=== PATIENT | female | born 1980 | race Caucasian/White ===

== ENCOUNTER 2016-11-08 06:25 | Inpatient (IN) | payer OTHER ==
--- NOTE | 2016-10-21 14:00 | GHP ---
[f rep st] PREOP HISTORY AND PHYSICAL Amended report DATE OF PLANNED PROCEDURE: 11/08/2016. PLANNED PROCEDURE: Repeat low transverse section. ADMISSION DIAGNOSIS: Intrauterine at 39 weeks gestation. History of previous section x2. Scheduled for repeat. INDICATIONS: Patient is a 36-year-old 3, para 2, who will be 39 weeks gestation. She has a history of a previous low transverse section x2 and plan to repeat low transverse section. The patient had initially planned on having a tubal ligation, but her has had a vasectomy so she will not have a tubal ligation. Risks and benefits of the procedure have been extensively reviewed with the patient, and the patient has been properly consented. MEDICAL HISTORY: Hypothyroidism, a history of Juliet diagnosed in 2010, rectus diastasis versus umbilical hernia. MEDICATIONS: vitamins, levothyroxine 25 mcg. SURGICAL HISTORY: section x2, wisdom tooth extraction. ALLERGIES: No known drug allergies. SOCIAL HISTORY: Patient is . She is a xvwq-ir-pema mom. She lives with her and her 2 children. She denies tobacco, alcohol, or drug use. FAMILY MEDICAL HISTORY: Noncontributory. PRENATAL NURSE HISTORY: Menarche age 15, periods every 24 days lasting 4-5 days. She is a 3, para 2-0-0-2. In 2011, she had a primary low transverse section at 41 weeks gestation for intolerance of labor. Baby was an 8 pound 13 ounce male . In 2013, she had a repeat low transverse section at 39 weeks gestation. Baby was 8 pounds, 3 ounces and a male infant. Current has been uncomplicated. Patient denies any history of any abnormal Pap smears or sexually transmitted diseases. PHYSICAL EXAM: VITAL SIGNS: Stable. GENERAL APPEARANCE: Alert and oriented x3. HEART: Rate is regularly regular. LUNGS: Clear to auscultation bilaterally. ABDOMEN: Gravid, nondistended, nontender. EXTREMITIES: Reveal no calf tenderness or edema. PELVIC: Exam was deferred. Patient's heart tracings have been appropriate. heart tones in an in a vertex presentation. Patient's labs, blood type O positive , antibody screen negative. Rubella immune. GBS positive. HBsAg negative. HIV negative. Her 50-g glucose was 85. ASSESSMENT AND PLAN: A 36-year-old 3, para 2, who will be 39 weeks gestation with a history of a previous low transverse section x2. She will have a repeat low transverse section. She does not need to have a tubal ligation, as her has just had a vasectomy. /[id number]/MODL Add acc#, 11/08/16, kaleb ALVAREZ
[2016-11-08] MEDS ORDERED: ceFAZolin 2 GM/DEXTROSE 100 ML IV ONE (06:46)
[2016-11-08] MEDS ORDERED: CITRIC ACID/SODIUM CITRATE 30 ML UDCUP PO ONE (06:46)
[2016-11-08] MEDS ORDERED: LR 500 ML IV ONE (06:46)
[2016-11-08] MEDS ORDERED: LR 1,000 ML IV SCH (07:00)
[2016-11-08] MEDS ORDERED: LIDOCAINE 1% 30 ML SDV ONE (07:26)
[2016-11-08] MEDS ORDERED: OXYTOCIN 10 UNIT/ML VIAL ONE (07:27)
[2016-11-08] MEDS ORDERED: MISOPROSTOL 200 MCG TAB ONE (07:27)
[2016-11-08 07:45] LABS: % IMMATURE GRANULYOCYTES 0.7 % (0.0-1.1); ABSOLUTE IMMATURE GRANULOCYTES 0.08 10^3/uL (0.00-0.10); ADD DIFF? NO; ADD MORPH? NO; ADD SCAN? NO; ATYPICAL LYMPHOCYTE FLAG 20 (0-99); FRAGMENT RBC FLAG 0 (0-99); HEMATOCRIT 39.8 % (38.0-47.0); HEMOGLOBIN 13.6 g/dL (12.6-16.3); LEFT SHIFT FLG 0 (0-99); LIPEMIA HEMOLYSIS FLAG 90 (0-99); MEAN CELL HEMOGLOBIN 29.7 pg (27.9-34.1); MEAN CELL HEMOGLOBIN CONCENTR. 34.2 g/dL (32.4-36.7); MEAN CELL VOLUME 86.9 fL (81.5-99.8); MEAN PLATELET VOLUME 9.8 fL (8.7-11.7); PLATELET CLUMPS FLAG 10 (0-99); PLATELET COUNT 212 10^3/uL (150-400); RED BLOOD CELL COUNT 4.58 10^6/uL (4.18-5.33); RED CELL DISTRIBUTION WIDTH 13.6 % (11.5-15.2)
[2016-11-08] MEDS ORDERED: ONDANSETRON 4 MG/2 ML VIAL IVP PRN (08:20)
[2016-11-08] MEDS ORDERED: NALOXONE HCL 0.4 MG/ML INJ IVP PRN ×2 (08:20)
[2016-11-08] MEDS ORDERED: OXYCODONE/APAP 5/325 TAB PO PRN (08:20)
[2016-11-08] MEDS ORDERED: HYDROmorphONE/DILAUDID 1 MG/ML SYR IVP PRN (08:20)
[2016-11-08] MEDS ORDERED: PHENYLEPHRINE HCL 100 MCG/ML SYR IVP PRN (08:20)
[2016-11-08] MEDS ORDERED: fentaNYL 100 MCG/2 ML INJ IVP PRN (08:20)
[2016-11-08] MEDS ORDERED: MEPERIDINE 25 MG/ML SYR IVP PRN (08:20)
[2016-11-08] MEDS ORDERED: FAMOTIDINE 20 MG/NACL 50 ML IV ONE (08:22)
[2016-11-08] MEDS ORDERED: FAMOTIDINE 20 MG/NACL/50 ML BAG IV ONE (08:27)
[2016-11-08] MEDS ORDERED: morphINE PF 5 MG/10 ML INJ ONE (08:29)
[2016-11-08] MEDS ORDERED: fentaNYL 100 MCG/2 ML INJ ONE (08:29)
[2016-11-08] MEDS ORDERED: BUPIVACAINE/DEXTROSE 7.5MG/ML 2 ML SPINAL AMP SP ONE (08:29)
[2016-11-08] MEDS ORDERED: PHENYLEPHRINE HCL 100 MCG/ML SYR ONE ×2 (08:29→09:12)
[2016-11-08] MEDS ORDERED: OXYTOCIN 100 UNITS/10 ML VIAL ONE (08:32)
--- NOTE | 2016-11-08 09:51 | OBPROC ---
- Delivery Pre-op Diagnoses: IUP 39 weeks, prior c section x 2 Post-op Diagnoses: same Procedure: Repeat, Low Transverse Surgeon: Sharon Warner Welding Technician: Luisa Hardwick Anesthesiologist: Prieto Sue Anesthesia: Spinal Complications: None EBL: 800 - [place] Info Infant A Delivery Date: 11/08/16 Delivery Time: 09:03 Sex of Infant: Male Score (1 Min): 9 Score (5 Min): 9
[2016-11-08] MEDS ORDERED: MAGNESIUM HYDROXIDE 30 ML UDCUP PO PRN (09:52)
[2016-11-08] MEDS ORDERED: LACTULOSE 20 GM/30 ML UDCUP PO PRN (09:52)
[2016-11-08] MEDS ORDERED: DOCUSATE SODIUM 100 MG CAP PO PRN (09:52)
[2016-11-08] MEDS ORDERED: SIMETHICONE 80 MG TAB CHEW PO PRN (09:52)
[2016-11-08] MEDS ORDERED: BISACODYL 10 MG SUPP PR PRN (09:52)
[2016-11-08] MEDS ORDERED: ACETAMINOPHEN 325 MG TAB PO PRN (09:52)
[2016-11-08] MEDS ORDERED: POLYETHYLENE GLYCOL 3350 17 GM PKT PO PRN (09:52)
--- NOTE | 2016-11-08 10:34 | GOP ---
[f rep st] OPERATIVE REPORT DATE OF OPERATION: 11/08/2016 SURGEON: Sharon Warner DO PRECONSTRUCTION MANAGER: Luisa Hardwick DO ANESTHESIA: Spinal. ANESTHESIOLOGIST: Prieto Sue MD PREOPERATIVE DIAGNOSIS: 1. Intrauterine at 39 weeks' gestation. 2. History of previous section x2. POSTOPERATIVE DIAGNOSIS: 1. Intrauterine at 39 weeks' gestation. 2. History of previous section x2. PROCEDURE PERFORMED: FINDINGS: 1. Viable male infant in the occiput anterior presentation delivered at 9:03 am. Apgars were 9 and 9. 2. Intact placenta with 3-vessel cord. 1. Normal ovaries, uterus, and tubes. ESTIMATED BLOOD LOSS: 800 cc. INDICATIONS: Patient is a 36-year-old 3 para 2-0-0-2, who has a history of previous low tra nsverse section x2. She presents for a scheduled repeat low transverse section. DESCRIPTION OF PROCEDURE: The patient was taken to the operating room with intravenous fluids in pl pablo. She was then seated on the operating room table where spinal anesthesia was obtained. She was given 2 g of Ancef preoperatively. She was then repositioned onto the table in the dorsal supine p osition with a leftward tilt. A Lr catheter was placed. Venodyne's were placed on her lower ext remities. She was then prepped and draped in the normal sterile fashion. Anesthesia was assessed a nd found to be adequate. A Pfannenstiel skin incision was then made 2 fingerbreadths above the pubi c symphysis along the previous section scar. The incision was then carried through to the underlying layer of fascia with the Bovie. The fascia was then nicked in the midline. The fascial incision was extended laterally. The superior aspect of the fascial incision was then grasped with Thanh's, tented up, and the underlying rectus muscle dissected off bluntly with the Bovie. Attenti on was then turned to the inferior aspect of the fascial incision which, in a similar fashion, was g rasped with a Thanh and tented up, and the underlying rectus muscle was dissected off bluntly with the Bovie. The rectus muscle was then in the midline. The peritoneum was then identified , tented up, and entered sharply with the Metzenbaum scissors. The incision was extended superiorly and inferiorly with excellent visualization of the bladder. The bladder blade was then inserted. The vesicouterine peritoneum was then identified, tented up, and entered sharply with the Metzenbaum scissors. The incision was extended bilaterally, and a bladder flap was created digitally. The bl adder blade was then reinserted. The uterus was then incised in low transverse fashion with the sca lpel. The uterine incision was extended laterally. Bulging bag of water was noted, and it was rupt ured with an Allis clamp. Clear fluid was noted. The 's head was then delivered through the incision. The remainder of the viable was delivered without difficulty. Delayed cord clampi ng was done for 1 minute. Cord was then clamped x2 and cut, and the was handed off to [facility] nurse practitioner. Cord blood was obtained. Intact placenta with 3-vessel cord was th en delivered without difficulty. The uterus was then cleared of all clots and debris, and Pitocin w as then started. The bladder blade was then reinserted. The uterine incision was closed with 0 Derrek ryl in a running, locked fashion. A 2nd 0 Vicryl stitch was used to imbricate the uterine incision. Hemostasis was assured. The round ligament was used to rotate the uterus, and the ovaries and tub es were noted to be unremarkable on each side. The hysterotomy remained hemostatic. Peritoneum was reapproximated with 3-0 Vicryl in a running fashion. Rectus muscle was reapproximated with 2-0 Derrek ryl in a running fashion. The fascia was closed with 0 Vicryl in a running fashion. Subcutaneous t issue was reapproximated with 3-0 Vicryl in a running fashion, and the skin was then closed with sta ples. Sponge, lap, needle counts were correct x2. The patient was transported to recovery room in stable condition. PROCEDURE: Repeat low transverse section. ESTIMATED BLOOD LOSS: 800 cc. /[id number]/MODL
[2016-11-08] MEDS ORDERED: KETOROLAC 30 MG/1 ML SDV ONE (10:45)
[2016-11-08] MEDS: KETOROLAC 30 MG/1 ML SDV IVP SCH ×3 (10:48→23:05)
[2016-11-08] MEDS: HYDROCODONE/APAP 5/325 TAB PO PRN (20:49)
[2016-11-08] MEDS: SENNOSIDES/DOCUSATE SODIUM TAB PO SCH (22:16)
[2016-11-09] MEDS: HYDROCODONE/APAP 5/325 TAB PO PRN ×6 (02:53→23:47)
[2016-11-09] MEDS: KETOROLAC 30 MG/1 ML SDV IVP SCH (05:09)
[2016-11-09] MEDS ORDERED: LEVOTHYROXINE 50 MCG TAB PO SCH (06:00)
[2016-11-09] MEDS: LEVOTHYROXINE 25 MCG TAB PO SCH (06:41)
[2016-11-09] MEDS: SENNOSIDES/DOCUSATE SODIUM TAB PO SCH ×2 (07:34→20:06)
--- NOTE | 2016-11-09 10:45 | SOAPPROG ---
SOAP Progress Note Assessment/Plan: Assessment: 36y/o day 1 s/p repeat C/S, uncomplicated Mild anemia Plan: Start PO iron q day for anemia Routine PP care 11/09/16 10:41 Subjective: Pt resting in bed, family at bedside with . Reports pain well- controlled. Tolerating regular diet. Lochia light, reports passed one clot otherwise normal. Voiding without difficulty. Passing flatus, denies BM. Objective: Vital Signs Temp Pulse Resp BP Pulse Ox 36.6 C 68 16 101/66 93 11/09/16 00:15 11/09/16 05:34 11/09/16 00:15 11/09/16 00:15 11/09/16 05:34 Laboratory Results 11/09/16 04:00 11/08/16 11/09/16 11/10/16 05:59 05:59 05:59 Intake Total 2650 Output Total 5250 Balance -2600 Physical Exam - Physical Exam General Appearance: alert, no apparent distress Respiratory: lungs clear, normal breath sounds Cardiac/Chest: regular rate, rhythm Abdomen: non-tender, soft, other (fundus firm @U-1; incision bandage clean, dry , intact) Pelvic Exam: vaginal bleeding (lochia light) Extremities: normal range of motion, non-tender, pedal edema (no BLE edema noted ) Neuro/Psych: alert, normal mood/affect, oriented x 3 ICD10 Worksheet Patient Problems: Problems Problem Status Onset Declines vaginal after trial Acute Hypothyroid Acute Status post repeat low transverse section Acute
[2016-11-09] MEDS: IBUPROFEN 600 MG TAB PO PRN ×3 (11:04→23:17)
[2016-11-09] MEDS: IRON POLYSAC/IRON HEME 28 MG TAB PO SCH (11:06)
[2016-11-10] MEDS: HYDROCODONE/APAP 5/325 TAB PO PRN ×2 (03:56→08:11)
[2016-11-10] MEDS: LEVOTHYROXINE 25 MCG TAB PO SCH (05:17)
[2016-11-10] MEDS: IBUPROFEN 600 MG TAB PO PRN (05:17)
--- NOTE | 2016-11-10 07:16 | OBPROG ---
OBG Progress Note Assessment/Plan: Assessment: 1) s/p RCS POD #2 - pt is stable 2) Anemia - pt is asymptomatic 3) Hypothyroidism - stable on meds Plan: Continue routine post-op care Plan for d/c home later today Instructions reviewed with pt Rx given for [place] and Motrin Cont PNV, iron Pelvic rest RTC in 2 ,4 and 6 weeks for pp visit 11/10/16 07:12 Subjective: Pt seen and examined. Doing well with no complaints. Pain is well controlled. Pt is OOB, laureano reg diet, voiding and passing flatus. No BM yet. Moderate lochia. Denies any f/c/n/v/CP or SOB. without difficulty. Wants to go home today. Objective: 11/09/16 04:00 Patient ABO/Rh O POSITIVE 11/08/16 07:30 Temp Pulse Resp BP Pulse Ox 36.1 C 68 16 90/53 L 94 11/10/16 04:00 11/10/16 04:00 11/10/16 04:00 11/10/16 04:00 11/10/16 04:00 Uterine Position/Fundal Height: Umbilicus -2 Uterine Tone: Firm - Physical Exam General Appearance: WD/WN, alert, no apparent distress Respiratory: lungs clear, normal breath sounds Cardiac/Chest: regular rate, rhythm Abdomen: normal bowel sounds, non-tender, soft, flatus (+), incision (C/D/I with mark) Genitourinary: lochia (moderate) Extremities: non-tender, normal inspection Neuro/Psych: no motor/sensory deficits, normal mood/affect, oriented x 3 ICD10 Worksheet Patient Problems: Problems Problem Status Onset Declines vaginal after trial Acute Hypothyroid Acute Status post repeat low transverse section Acute
[2016-11-10] MEDS: SENNOSIDES/DOCUSATE SODIUM TAB PO SCH (08:11)
[2016-11-10] MEDS: IRON POLYSAC/IRON HEME 28 MG TAB PO SCH (08:58)
[2016-11-10 09:53] VITALS: BP 109/60; PULSE 76; RESP 18; TEMP 98.3; O2SAT 96
== END 2016-11-10 10:50 | disposition home or self-care (01) | DRG 766 ==
LOC: FLD 06:25 → FOB 11:29
PROVIDERS: ADMIT Obstetrics & Gynecology; ATTEND Obstetrics & Gynecology
PROC: 10D00Z1 Extraction of Products of Conception, Low, Open Approach (ICD-10-PCS; principal; 2016-11-08)
DX: O34.211 Maternal care for low transverse scar from previous cesarean delivery (principal); O99.820 Streptococcus B carrier state complicating pregnancy; O99.283 Endocrine, nutritional and metabolic diseases complicating pregnancy, third trimester; E03.9 Hypothyroidism, unspecified; Z3A.39 39 weeks gestation of pregnancy; Z37.0 Single live birth
CPT/HCPCS: J0690; J1885; J2274; J2370; J2590; J3010

== ENCOUNTER 2018-08-03 01:11 | Emergency (ER) | payer OTHER ==
[2018-08-03] MEDS ORDERED: NS 1,000 ML IV ONE ×3 (01:22→04:58)
--- NOTE | 2018-08-03 01:32 | EDPHY ---
H & P Stated Complaint: abd pain, N/V/D Time Seen by Provider: 08/03/18 01:32 HPI/ROS: HPI CHIEF COMPLAINT: Abdominal pain, nausea, vomiting, diarrhea multiple sick contacts at home. HISTORY OF PRESENT ILLNESS: Patient 37-year-old female, very pleasant, otherwise healthy presents emergency room nausea vomiting and diarrhea. This started on Friday had multiple episodes of nausea vomiting and diarrhea over the weekend. It got worse tonight with severe abdominal pain. She had a syncopal episode during her diarrhea. She presents emergency room complaining of lower abdominal pain nausea vomiting and diarrhea. Watery. No blood. No fever. Patient denies any chest pain or shortness of breath. Is noted upon arrival she has blood pressure that is low at triage in the 70s. Past Medical History: Thyroid disease Past Surgical History: x3 Social History: Denies drugs alcohol tobacco. Family History: Noncontributory ROS REVIEW OF SYSTEMS: 10 Systems were reviewed and negative with the exception of the elements mentioned in the history of present illness. Exam Constitutional nontoxic triage nursing summary reviewed, vital signs reviewed, awake/alert. Hypotensive at triage. Eyes normal conjunctivae and sclera, EOMI, PERRLA. HENT normal inspection, atraumatic, moist mucus membranes, no epistaxis, neck supple/ no meningismus, no raccoon eyes. Respiratory clear to auscultation bilaterally, normal breath sounds, no respiratory distress, no wheezing. Cardiovascular rate normal, regular rhythm, no murmur, no edema, distal pulses normal. Gastrointestinal mild tender palpation lower abdomen, no rebound, no guarding , normal bowel sounds, no distension, no pulsatile mass. Genitourinary no CVA tenderness. Musculoskeletal no midline vertebral tenderness, full range of motion, no calf swelling, no tenderness of extremities, no meningismus, good pulses, neurovascularly intact. Skin pink, warm, & dry, no rash, skin atraumatic. Neurologic awake, alert and oriented x 3, AAOx3, moves all 4 extremities equally, motor intact, sensory intact, CN II-XII intact, normal cerebellar, normal vision, normal speech. Psychiatric normal mood/affect. Heme/Lymph/Immune no lymphadenopathy. Differential Diagnosis: Differential diagnosis includes but is not limited to and in no particular order: Bowel obstruction, appendicitis, gallbladder disease, diverticulitis, colitis, enteritis, perforated viscus, gastritis, GERD , esophagitis, urinary tract infection, pyelonephritis, kidney stones, dehydration, electrolyte disturbance, influenza, acute GI illness. Medical Decision Making: Plan for this patient IV establishment IV fluid bolus , 2 L normal saline, IV Zofran nausea, CT scan abdomen pelvis with IV contrast for lower abdominal pain, basic electrolytes and blood work. Re-evaluate. Re-evaluation: CT scan abdomen pelvis with IV contrast showed periportal edema and fluid around the gallbladder. Otherwise no acute inflammatory process seen. No gallstones. Due to the periportal and gall bladder fluid and ultrasound was performed. No evidence of acute cholecystitis on ultrasound. Patient's initial lactic acid was elevated. Much improved after IV fluids. Labs reviewed. [id number]: Patient re-evaluated this time resting comfortably abdomen remained soft nontender. Not vomiting and no diarrhea. Patient reports to me she feels much better after IV fluids and medications here. Patient denies any chest pain or shortness of breath. The patient had EKG after having nausea vomiting and diarrhea and having a syncopal episode at home. EKG interpretation by me on record in [employer] system. Impression time of EKG 1:53 a.m., sinus rhythm rate of 71, without any signs of acute ischemia or cardiac arrhythmia. Patient feeling much better after IV fluids, patient has not had any diarrhea here. CT and ultrasound reviewed No evidence of acute cholecystitis I do recommend the patient has a bland diet no spicy fatty greasy foods over the next 24-48 hours Return emergency room if worsening abdominal pain, fever, vomiting she is comfortable this plan. Blood pressure much improved after IV fluids. She received 3 L of fluid. Initial blood pressure was rather low most likely due to volume depletion dehydration nausea vomiting. Diarrhea. Source: Patient - Medical/Surgical History Hx Asthma: No Hx Chronic Respiratory Disease: No Hx Diabetes: No Hx Cardiac Disease: No Hx Renal Disease: No Hx Cirrhosis: No Hx Alcoholism: No Hx HIV/AIDS: No Hx Splenectomy or Spleen Trauma: No Other PMH: Hypothyroid, previous C/S x 2, umbilical hernia, - Social History Smoking Status: Never smoked Constitutional: Initial Vital Signs Temperature (C) 36.3 C 08/03/18 01:14 Heart Rate 65 08/03/18 01:14 Respiratory Rate 20 08/03/18 01:14 Blood Pressure 72/49 L 08/03/18 01:14 O2 Sat (%) 92 08/03/18 01:14 O2 Delivery Mode Room Air Allergies/Adverse Reactions: No Known Allergies Allergy (Unverified 08/03/18 01:13) Home Medications: Medication Instructions Recorded Levothyroxine [Synthroid 50 mcg 37 mcg PO DAILY06 04/20/14 (*)] Vit27&Calcium/Iron/FA 1 tab PO DAILY 04/20/14 [] Herbal Drugs 1 tab PO DAILY 11/08/16 Hydrocodone/APAP 5/325 [Bland 1 - 2 tab PO Q4HRS PRN #30 tab 11/10/16 5/325 (*)] Ibuprofen [Motrin (*)] 600 mg PO Q6HRS PRN #30 tab 11/10/16 Medical Decision Making - Data Points Laboratory Results: Laboratory Results 08/03/18 01:30 08/03/18 01:30 08/03/18 08/03/18 08/03/18 03:40 01:50 01:30 WBC RBC Hgb Hct MCV MCH MCHC RDW Plt Count MPV Neut % (Auto) Lymph % (Auto) [place] % (Auto) Eos % (Auto) Baso % (Auto) Nucleat RBC Rel Count Absolute Neuts (auto) Absolute Lymphs (auto) Absolute Monos (auto) Absolute Eos (auto) Absolute Basos (auto) Absolute Nucleated RBC Immature Gran % Immature Gran # PT INR APTT VBG Lactic Acid 0.7 mmol/L mmol/L (0.7-2.1) Sodium Potassium Chloride Carbon Dioxide Anion Gap BUN Creatinine Estimated GFR Glucose Calcium Total Bilirubin Conjugated Bilirubin Unconjugated Bilirubin AST ALT Alkaline Phosphatase Troponin I Total Protein Albumin Lipase Beta HCG, Qual NEGATIVE Nasal Influenza A PCR NEGATIVE FOR FLU A (NEGATIVE) Nasal Influenza B PCR NEGATIVE FOR FLU B (NEGATIVE) 08/03/18 08/03/18 08/03/18 01:30 01:30 01:30 WBC 11.71 10^3/uL H 10^3/uL (3.80-9.50) RBC 4.18 10^6/uL 10^6/uL (4.18-5.33) Hgb 12.9 g/dL g/dL (12.6-16.3) Hct 37.0 % L % (38.0-47.0) MCV 88.5 fL fL (81.5-99.8) MCH 30.9 pg pg (27.9-34.1) MCHC 34.9 g/dL g/dL (32.4-36.7) RDW 12.4 % % (11.5-15.2) Plt Count 332 10^3/uL 10^3/uL (150-400) MPV 9.0 fL fL (8.7-11.7) Neut % (Auto) 81.9 % H % (39.3-74.2) Lymph % (Auto) 8.8 % L % (15.0-45.0) [place] % (Auto) 7.9 % % (4.5-13.0) Eos % (Auto) 0.7 % % (0.6-7.6) Baso % (Auto) 0.4 % % (0.3-1.7) Nucleat RBC Rel Count 0.0 % % (0.0-0.2) Absolute Neuts (auto) 9.59 10^3/uL H 10^3/uL (1.70-6.50) Absolute Lymphs (auto) 1.03 10^3/uL 10^3/uL (1.00-3.00) Absolute Monos (auto) 0.92 10^3/uL H 10^3/uL (0.30-0.80) Absolute Eos (auto) 0.08 10^3/uL 10^3/uL (0.03-0.40) Absolute Basos (auto) 0.05 10^3/uL 10^3/uL (0.02-0.10) Absolute Nucleated RBC 0.00 10^3/uL 10^3/uL (0-0.01) Immature Gran % 0.3 % % (0.0-1.1) Immature Gran # 0.04 10^3/uL 10^3/uL (0.00-0.10) PT 14.0 SEC SEC (12.0-15.0) INR 1.06 (0.83-1.16) APTT 23.2 SEC SEC (23.0-38.0) VBG Lactic Acid Sodium 130 mEq/L L mEq/L (135-145) Potassium 3.3 mEq/L L mEq/L (3.5-5.2) Chloride 98 mEq/L mEq/L (97-110) Carbon Dioxide 22 mEq/l mEq/l (22-31) Anion Gap 10 mEq/L mEq/L (6-14) BUN 7 mg/dL mg/dL (7-23) Creatinine 0.8 mg/dL mg/dL (0.6-1.0) Estimated GFR > 60 Glucose 157 mg/dL H mg/dL (70-100) Calcium 8.8 mg/dL mg/dL (8.5-10.4) Total Bilirubin 0.9 mg/dL mg/dL (0.1-1.4) Conjugated Bilirubin 0.4 mg/dL mg/dL (0.0-0.5) Unconjugated Bilirubin 0.5 mg/dL mg/dL (0.0-1.1) AST 93 IU/L H IU/L (14-46) ALT 42 IU/L IU/L (9-52) Alkaline Phosphatase 110 IU/L IU/L (38-126) Troponin I < 0.012 ng/mL ng/mL (0.000-0.034) Total Protein 6.6 g/dL g/dL (6.3-8.2) Albumin 3.9 g/dL g/dL (3.5-5.0) Lipase 56 IU/L IU/L (23-300) Beta HCG, Qual Nasal Influenza A PCR Nasal Influenza B PCR 08/03/18 01:30 WBC RBC Hgb Hct MCV MCH MCHC RDW Plt Count MPV Neut % (Auto) Lymph % (Auto) [place] % (Auto) Eos % (Auto) Baso % (Auto) Nucleat RBC Rel Count Absolute Neuts (auto) Absolute Lymphs (auto) Absolute Monos (auto) Absolute Eos (auto) Absolute Basos (auto) Absolute Nucleated RBC Immature Gran % Immature Gran # PT INR APTT VBG Lactic Acid 2.4 mmol/L H mmol/L (0.7-2.1) Sodium Potassium Chloride Carbon Dioxide Anion Gap BUN Creatinine Estimated GFR Glucose Calcium Total Bilirubin Conjugated Bilirubin Unconjugated Bilirubin AST ALT Alkaline Phosphatase Troponin I Total Protein Albumin Lipase Beta HCG, Qual Nasal Influenza A PCR Nasal Influenza B PCR Medications Given: Discontinued Medications Hydromorphone HCl (Dilaudid) 1 mg IVP EDNOW ONE Stop: 08/03/18 03:04 Last Admin: 08/03/18 03:07 Dose: 1 mg Sodium Chloride (Ns) 1,000 mls @ 0 mls/hr IV EDNOW ONE; Wide Open PRN Reason: Protocol Stop: 08/03/18 01:23 Last Admin: 08/03/18 01:37 Dose: 1,000 mls Sodium Chloride (Ns) 1,000 mls @ 0 mls/hr IV ONCE ONE PRN Reason: Wide Open Stop: 08/03/18 01:33 Last Admin: 08/03/18 01:38 Dose: 1,000 mls Ondansetron HCl (Zofran) 4 mg IVP EDNOW ONE Stop: 08/03/18 01:39 Last Admin: 08/03/18 01:45 Dose: 4 mg Ondansetron HCl (Zofran) 4 mg IVP EDNOW ONE Stop: 08/03/18 03:04 Last Admin: 08/03/18 03:07 Dose: 4 mg Departure - Departure Disposition: Home, Routine, Self-Care Clinical Impression: Vomiting, Diarrhea, Abdominal pain Condition: Good Instructions: Acute Nausea and Vomiting (ED), Acute Diarrhea (ED), Acute Abdominal Pain (ED) Additional Instructions: 1. [place] diet over the next 24-48 hours 2. No spicy fatty greasy foods. 3. Return emergency room if worsening abdominal pain, fever, vomiting or not doing well Referrals: NONE *PRIMARY CARE P,. [Primary Care Provider] - As per Instructions
[2018-08-03] MEDS ORDERED: ONDANSETRON 4 MG/2 ML VIAL IVP ONE ×2 (01:38→03:03)
[2018-08-03 01:40] LABS: PLATELET COUNT 332 10^3/uL (150-400)
[2018-08-03 01:48] LABS: INR 1.06 (0.83-1.16)
[2018-08-03] MEDS ORDERED: IOPAMIDOL (ISOVUE 370) 100 ML BTL IV ONE (01:53)
[2018-08-03] MEDS ORDERED: HYDROmorphONE/DILAUDID 2 MG/ML INJ IVP ONE (03:03)
[2018-08-03 06:39] VITALS: BP 112/56
--- NOTE | 2018-08-06 07:51 | CPEKG ---
Test Reason : OPEN Blood Pressure : / mmHG Vent. Rate : 071 BPM Atrial Rate : 072 BPM P-R Int : 139 ms QRS Dur : 106 ms QT Int : 434 ms P-R-T Axes : 039 098 044 degrees QTc Int : 472 ms Sinus rhythm Left posterior fascicular block Confirmed by Shashi Nguyen ([id number]) on 08/06/2018 7:50:44 AM Referred By: Confirmed By:Shashi Nguyen
== END 2018-08-03 06:39 | disposition home or self-care (01) ==
DX: R11.2 Nausea with vomiting, unspecified (principal); R19.7 Diarrhea, unspecified; R10.30 Lower abdominal pain, unspecified; E86.9 Volume depletion, unspecified; E03.9 Hypothyroidism, unspecified
CPT/HCPCS: 96374; J1170; J2405; Q9967